=== PATIENT | female | born 1960 | race Caucasian/White ===

== ENCOUNTER → 2017-09-04 | Outpatient (CLI) | payer OTHER ==
--- NOTE | 2017-09-05 12:56 | BD ---
EXAMINATION TYPE: MG DEXA axial skeleton. DATE OF EXAM: 09/04/2017 COMPARISON: 2009 CLINICAL HISTORY: low back pain Height: 5'4 Weight: 137 FRAX RISK QUESTIONS: Alcohol (3 or more units per day): no Family History (Parent hip fracture): no Glucocorticoids (More than 3mos): no (Ex: prednisone, prednisolone, methylprednisolone, dexamethasone, and hydrocortisone). History of Fracture in Adulthood: yes Secondary Osteoporosis: 1. Type 1 Diabetes: no 2. Hyperthyroidism: no 3. Menopause before 45: no 4. Malnutrition: no 5. Chronic liver disease: no Rheumatoid Arthritis: no Current Tobacco Use: no RISK FACTORS HISTORY OF: Postmenopausal woman: MEDICATIONS: Additional Medications: sleep aid, anxiety, muscle relaxer anti inflammatory, migraine Additional History: EXAM MEASUREMENTS: Bone mineral densitometry was performed using the [employer] / [employer] System. Bone mineral density as measured about the Lumbar spine is: ----- L1-L4(G/cm2): 1.052 T Score Values are as follows: ----- L2: -0.9 ----- L3: -1.2 ----- L4: -1.4 ----- L1-L4: -1.1 Bone mineral density has: Decreased -10.2% since study of: 12/30/2009 Bone mineral density about the R hip (g/cm2): 0.675 Bone mineral density about the L hip (g/cm2): 0.690 T Score values are as follows: -----R Neck: -2.6 -----L Neck: -2.5 -----R Total: -2.4 -----L Total: -2.3 Bone mineral density has: Decreased -6.9% since study of: 12/30/2009 IMPRESSION: Osteoporosis (T Score less than -2.5) as noted by T Score values at the: Rt hip There is increased fracture risk and therapy is usually indicated based on age. Re-Screen 1-2 years. NOTE: T-SCORE=SD OF THE YOUNG ADULT MEAN.
== END | disposition home or self-care (01) ==
LOC: RADBDWWP 16:12
PROVIDERS: ATTEND Family Medicine
DX: M81.0 Age-related osteoporosis without current pathological fracture (principal); Z88.8 Allergy status to other drugs, medicaments and biological substances
CPT/HCPCS: 77080

== ENCOUNTER → 2017-11-05 | Outpatient (CLI) | payer OTHER ==
--- NOTE | 2017-11-06 07:30 | MM ---
Reason for exam: additional evaluation requested from prior study. Last mammogram was performed 9 years and 7 months ago. History: Family history of breast cancer in aunt. Physical Findings: Nurse did not find any significant physical abnormalities on exam. MG Diagnostic Mammo w CAD CHUY Bilateral CC and MLO view(s) were taken. Prior study comparison: April 07, 2008, bilateral digital screening mammogram. 2003, mammogram, performed at [facility]. The breast tissue is heterogeneously dense. This may lower the sensitivity of mammography. Finding: There are typically benign round calcifications in the middle position of the left breast. Asymmetric breast tissue in the right outer breast, stable. There is no discrete abnormality. These results were verbally communicated with the patient and result sheet given to the patient on 11/05/17. ASSESSMENT: Incomplete: need additional imaging evaluation, BI-RAD 0 RECOMMENDATION: Ultrasound of the left breast. (Pain focal).
--- NOTE | 2017-11-06 07:34 | USB ---
Reason for exam: additional evaluation requested from prior study. History: Family history of breast cancer in aunt. US Breast Limited LT Left breast ultrasound demonstrates no cystic or solid lesion seen. These results were verbally communicated with the patient and result sheet given to the patient on 11/05/17. ASSESSMENT: Negative, BI-RAD 1 RECOMMENDATION: Routine screening mammogram of both breasts in 1 year. (Manage on a clinical basis, left breast pain).
== END | disposition home or self-care (01) ==
LOC: RADMAMWWP 15:33
PROVIDERS: ATTEND Family Medicine
DX: N64.4 Mastodynia (principal); R92.8 Other abnormal and inconclusive findings on diagnostic imaging of breast; Z85.43 Personal history of malignant neoplasm of ovary
CPT/HCPCS: 76642; G0204

== ENCOUNTER → 2018-02-19 | Outpatient (CLI) | payer OTHER ==
--- NOTE | 2018-02-19 12:20 | CT ---
EXAMINATION TYPE: CT abdomen pelvis w con DATE OF EXAM: 02/19/2018 COMPARISON: NONE INDICATION: pain, bloating and wt gain DLP: 1196 mGycm, Automated exposure control for dose reduction was used. CONTRAST: 100 mL of Isovue 300. Study performed with Oral Contrast TECHNIQUE: Axial images were obtained from above the diaphragm to the pubic rami in the axial plane a t 5 mm thick sections. Reconstructed images are reviewed on the computer in the coronal plane. FINDINGS: Limited CT sections are obtained the lung bases. The lung bases are clear. CT ABDOMEN: Liver: Normal Spleen: Normal Pancreas: Normal Adrenal glands: The adrenal glands are normal. Gallbladder: Normal Kidneys: No masses are evident. No hydronephrosis is present. No cysts are present. Delayed images were obtained through the kidneys, which remain unremarkable. Aorta: Vascular calcification is within the aorta. Inferior vena cava: Normal. CT PELVIS: Loops of bowel within the abdomen and pelvis are normal. There are loops of bowel which are incom pletely distended or lack oral contrast limiting their evaluation. Diverticular changes are within th e sigmoid colon. Appendix: Normal as visualized. Urinary bladder: Normal. Genitourinary structures: Uterus is unremarkable. Adnexal regions are clear. No free fluid is within the pelvis. Osseous structures: No suspicious lytic or sclerotic lesions. There is a benign-appearing sclerotic a harika within the left iliac wing. IMPRESSIONS: 1. Unremarkable CT abdomen and pelvis. 2. Diverticulosis without acute diverticulitis.
== END | disposition home or self-care (01) ==
LOC: RADCTMAIN 06:59
PROVIDERS: ATTEND Family Medicine
DX: K57.90 Diverticulosis of intestine, part unspecified, without perforation or abscess without bleeding (principal); Z88.8 Allergy status to other drugs, medicaments and biological substances
CPT/HCPCS: 74177; Q9967

== ENCOUNTER → 2018-06-13 | Outpatient (CLI) | payer OTHER | END | disposition home or self-care (01) | LOC: RADMRIMAIN 07:12 | PROVIDERS: ATTEND Psychiatry & Neurology Neurology | DX: Z53.9 Procedure and treatment not carried out, unspecified reason (principal) ==

== ENCOUNTER → 2018-07-04 | Outpatient (CLI) | payer OTHER ==
--- NOTE | 2018-07-04 15:59 | MR ---
EXAMINATION TYPE: MR brain/cspine wo/w DATE OF EXAM: 07/04/2018 COMPARISON: None HISTORY: Migraines, Neck pain TECHNIQUE: Multiplanar, multisequence images of the brain and brainstem is performed without and with IV contras t, utilizing 7 mL intravenous Gadavist . FINDINGS: Brain: Diffusion weighted images demonstrate no evidence of a recent infarct or other diffusion abnor mality. There are approximately 6 T2/FLAIR hyperintense nonspecific white matter foci within the per iventricular and subcortical white matter of the frontal lobes. There is no extra-axial fluid collect ion. The ventricular system and cisternal spaces are normal in size and appearance. The brain volume is age appropriate. Midline structures demonstrate normal morphology. The craniocervical junction appears within normal limits. Post contrast images demonstrate no abnormal enhancement. The dural venous sinuses appear pa tent. The visualized sinuses are clear and the globes are intact. Cervical spine: The cervical spine vertebral bodies maintain normal vertebral body height. Multilevel disc desiccatio n is seen. Intervertebral disc space narrowing is present C6-C7. Bone marrow signal is unremarkable. Cervical spine signal is also again seen throughout. There is no abnormal postcontrast enhancement. C2-C3: There is a central disc herniation impressing upon the ventral subarachnoid space mildly witho ut significant spinal canal stenosis or neural foraminal narrowing. C3-C4: There is a central disc herniation with 3 mm cranial extrusion that is subligamentous narrowin g the ventral subarachnoid space creating mild spinal canal stenosis. There is no resultant neural fo raminal narrowing. C4-C5: There is a small right paracentral disc herniation impressing upon the ventral subarachnoid sp shelia and abutting the ventral cervical cord creating mild spinal canal stenosis. No resultant neural f oraminal narrowing. C5-C6: There is a small central disc osteophyte complex and very mild facet arthropathy with uncovert ebral hypertrophy however there is no neural foraminal narrowing. Mild spinal canal stenosis is seen at this level. C6-C7: There is a central disc herniation with uncovertebral hypertrophy and facet arthropathy creati ng mild bilateral neural foraminal narrowing and moderate spinal canal stenosis. C7-T1: No significant disc disease, spinal canal stenosis or neural foraminal narrowing. IMPRESSION: 1. Multilevel disc herniations seen at C2-C3, C3-C4, C4-C5, and C6-C7 creating mild spinal canal sten osis at C3-C4 and C4-C5 and moderate spinal canal stenosis at C6-C7. Degenerative disc disease also c reates mild spinal canal stenosis at C5-C6. 2. Mild burden nonspecific white matter change predominating within the frontal lobes which can be se en as sequela of migraines or in other etiologies such as demyelinating disease or vasculopathy. 3. No evidence of acute infarct, intracranial mass or abnormal enhancement of the brain or cervical s pine.
== END | disposition home or self-care (01) ==
LOC: RADMRIMAIN 11:46
PROVIDERS: ATTEND Psychiatry & Neurology Neurology
DX: M48.02 Spinal stenosis, cervical region (principal); M50.21 Other cervical disc displacement, high cervical region; M50.322 Other cervical disc degeneration at C5-C6 level; R90.89 Other abnormal findings on diagnostic imaging of central nervous system; G43.009 Migraine without aura, not intractable, without status migrainosus
CPT/HCPCS: 70553; 72156; A9581

== ENCOUNTER → 2018-09-12 | Outpatient (CLI) | payer OTHER ==
--- NOTE | 2018-09-12 21:16 | MR ---
Thoracic spine MRI with and without contrast HISTORY: Pain Multiplanar multisequence imaging through the thoracic spine There is a levoscoliosis present. Thoracic vertebral bodies show preserved height. There is multileve l spondylosis with endplate discogenic marrow signal change, loss of disc height and signal especiall y at T6-7, T7-8, T8-9 and T9-10. Nerve sheath diverticulum is present at T5-6 on the right. Thoracic cord signal is normal. There is no evident spinal stenosis or foraminal encroachment, no dis c herniation. Some facet arthropathy changes are present at the lower lumbar spine. No abnormal enhancement following contrast administration. IMPRESSION: Mild degenerative disc disease. Scoliosis. Additional findings above.
== END ==
LOC: RADMRIMAIN 18:36
PROVIDERS: ATTEND Psychiatry & Neurology Neurology
DX: M51.34 Other intervertebral disc degeneration, thoracic region (principal); M47.814 Spondylosis without myelopathy or radiculopathy, thoracic region; M46.94 Unspecified inflammatory spondylopathy, thoracic region
CPT/HCPCS: 72157; A9585

== ENCOUNTER → 2018-11-04 | Outpatient (CLI) | payer OTHER ==
--- NOTE | 2018-11-06 11:01 | MM ---
Reason for exam: screening (asymptomatic). Last mammogram was performed 1 year ago. History: Family history of breast cancer in aunt. Physical Findings: A clinical breast exam by your physician is recommended on an annual basis and results should be correlated with mammographic findings. MG Screening Mammo w CAD Bilateral CC and MLO view(s) were taken. Prior study comparison: November 05, 2017, bilateral MG diagnostic mammo w CAD CHUY. April 07, 2008, bilateral digital screening mammogram. The breast tissue is heterogeneously dense. This may lower the sensitivity of mammography. No significant changes when compared with prior studies. ASSESSMENT: Negative, BI-RAD 1 RECOMMENDATION: Routine screening mammogram of both breasts in 1 year.
== END | disposition home or self-care (01) ==
LOC: RADMAMWWP 15:41
PROVIDERS: ATTEND Family Medicine
DX: Z12.31 Encounter for screening mammogram for malignant neoplasm of breast (principal)
CPT/HCPCS: 77067

== ENCOUNTER 2018-12-11 09:21 | Emergency (ER) | payer OTHER ==
[2018-12-11 09:28] VITALS: BP 118/62; PULSE 90; RESP 18; TEMP 97.7
--- NOTE | 2018-12-11 09:45 | ED ---
ENT HPI - General Chief complaint: ENT Stated complaint: POSS COTTON IN RT EAR Time Seen by Provider: 12/11/18 09:29 Source: patient, RN notes reviewed, old records reviewed Mode of arrival: ambulatory Limitations: no limitations - History of Present Illness Initial comments: Patient is a 4-year-old female who presents emergency department today with chief complaint of chronic sinus issues for the past 2 months. She is using multiple [id number]-[id number] medications and remedies with little relief. Patient reports that she felt like her ear is regretful yesterday. She try to clean earwax. She apply drops and attempted to clean out her right ear with Q-tips. Patient presents today with complaints of, ball stuck within the right ear canal. Patient states she tried to get it out but was unsuccessful. Patient states that she feels pressure and pain within the right ear. Patient denies any fevers or chills. She denies any chest pain or shortness of breath. She reports that over the past 2 months she's had sinus congestion and sore throat and ear pain as well as a slight cough which the cough is recently resolved. - Related Data Home Medications Medication Instructions Recorded Confirmed Cyclobenzaprine [Flexeril] 10 mg PO TID 08/05/17 08/05/17 Previous Rx's Medication Instructions Recorded Azithromycin [Zithromax Z-pack] 250 mg PO DIRECTED #6 tab 12/11/18 Meclizine [Antivert] 25 mg PO TID #20 tab 12/11/18 Allergies Allergy/AdvReac Type Severity Reaction Status Date / Time prednisone Allergy Nausea & Verified 12/11/18 09:24 Vomiting Review of Systems ROS Statement: Those systems with pertinent positive or pertinent negative responses have been documented in the HPI. ROS Other: All systems not noted in ROS Statement are negative. Past Medical History Past Medical History: Cancer Additional Past Medical History / Comment(s): CLL History of Any Multi-Drug Resistant Organisms: None Reported Past Surgical History: No Surgical Hx Reported Additional Past Surgical History / Comment(s): eye surgery Past Psychological History: No Psychological Hx Reported Smoking Status: Never smoker Past Alcohol Use History: Rare Past Drug Use History: None Reported General Exam - General Exam Comments Initial Comments: This is a 58-year-old female. Alert and oriented. No significant distress. Limitations: no limitations General appearance: alert, in no apparent distress Head exam: Present: atraumatic, normocephalic, normal inspection Eye exam: Present: normal appearance, PERRL, EOMI. Absent: scleral icterus, conjunctival injection, periorbital swelling ENT exam: Present: normal exam, mucous membranes moist, other (Patient has a cottonball Q-tip stuck within the right ear canal. Patient's tenderness over the maxillary and ethmoid sinus). Absent: normal oropharynx (Erythematous oropharynx) Neck exam: Present: normal inspection. Absent: tenderness, meningismus, lymphadenopathy Respiratory exam: Present: normal lung sounds bilaterally. Absent: respiratory distress, wheezes, rales, rhonchi, stridor Cardiovascular Exam: Present: regular rate, normal rhythm, normal heart sounds. Absent: systolic murmur, diastolic murmur, rubs, gallop, clicks GI/Abdominal exam: Present: soft, normal bowel sounds. Absent: distended, tenderness, guarding, rebound, rigid Extremities exam: Present: normal inspection, full ROM, normal capillary refill. Absent: tenderness, pedal edema, joint swelling, calf tenderness Back exam: Present: normal inspection Neurological exam: Present: alert, oriented X3, CN II-XII intact Psychiatric exam: Present: normal affect, normal mood Skin exam: Present: warm, dry, intact, normal color. Absent: rash Course Vital Signs 12/11/18 09:24 Temperature 97.7 F Pulse Rate 90 Respiratory 18 Rate Blood Pressure 118/62 O2 Sat by Pulse 99 Oximetry Medical Decision Making - Medical Decision Making 58-year-old female presents today with chronic sinus issues in the past 2 months. She also complains of kind swab stuck within the right ear. I removed the cotton swab with alligator forceps. Patient tolerated the procedure well. He reports much relief after the procedure was completed. Patient does have some ethmoid Sinus tenderness. Due to multiple tyzq-psj-[id number] remedies salient will start the Patient on azithromycin at this time. Shows a has an erythematous right TM is clearly related to her recent consult. I discussed the Patient can follow-up with ENT and primary care provider. Discussed that no further, rales or sinus drainage technique should be completed without supervision physician. Patient agrees to treatment plan will comply. Disposition Clinical Impression: Sinusitis, Ear foreign body Disposition: HOME SELF-CARE Condition: Good Instructions (If sedation given, give patient instructions): Ear Foreign Body ( ED), Sinusitis (ED) Additional Instructions: Patient advised to not to any further Q-tips or drainage from the ears. The earwax has been removed. Take antibiotic as prescribed. Also taking meclizine to help with ear pain and sinus pressure. Patient should return to the emergency department if any alarming signs or symptoms occur. Prescriptions: Azithromycin [Zithromax Z-pack] 250 mg PO DIRECTED #6 tab Meclizine [Antivert] 25 mg PO TID #20 tab Is patient prescribed a controlled substance at d/c from ED?: No Referrals: Darryn Muir MD [Primary Care Provider] - 1-2 days Time of Disposition: 09:44
== END 2018-12-11 09:49 | disposition home or self-care (01) ==
LOC: EC 09:21
DX: T16.1XXA Foreign body in right ear, initial encounter (principal); J32.9 Chronic sinusitis, unspecified; Z88.8 Allergy status to other drugs, medicaments and biological substances; Z79.899 Other long term (current) drug therapy; Z85.6 Personal history of leukemia
CPT/HCPCS: 69200; 99283

== ENCOUNTER → 2018-12-16 | Outpatient (CLI) | payer OTHER ==
--- NOTE | 2018-12-16 10:44 | EST ---
EXERCISE STRESS DATE OF SERVICE: 12/16/2018 AGE: 58 SEX: Female HT: 64 WT: 135 PROTOCOL: Rex STAGE: I DURATION OF EXERCISE: 5 minutes 45 seconds HEART RATE REST: 86 BLOOD PRESSURE REST: 111/74 MAXIMUM HEART RATE ACHIEVED: 138 MAXIMUM BLOOD PRESSURE: 156/54 85% MPHR: 136 100% MPHR: 160 METS: 6.9 INDICATIONS: Chest pain. CLINICAL INFORMATION: Patient complains of chest pain. Baseline heart rate 86 beats per minute. Baseline blood pressure 111/74 mmHg. The patient's baseline 12-lead ECG shows normal sinus rhythm with J-point elevation in the lateral vein. The patient exercised on a Rex protocol for 5 minutes 45 seconds. She is not complaining of any chest pain, but she felt faint and she complained of headache. Normal blood pressure response. Peak heart rate 138 beats per minute. There was no definite ECG evidence for ischemia. No arrhythmias noted. IMPRESSION: Low average exercise capacity. Normal heart rate and blood pressure response to exercise. No ECG evidence for ischemia. No arrhythmias noted when the patient felt faint. Blood pressure and heart rate were normal. MMODL / IJN: [id number] /
== END | disposition home or self-care (01) ==
LOC: RADNMMAIN 08:31
PROVIDERS: ATTEND Family Medicine
DX: R07.9 Chest pain, unspecified (principal); Z88.8 Allergy status to other drugs, medicaments and biological substances
CPT/HCPCS: 93017

== ENCOUNTER 2019-01-26 12:02 | Emergency (ER) | payer OTHER ==
[2019-01-26] MEDS ORDERED: SODIUM CHLORIDE 0.9% 1,000 ML IV STA (12:31)
--- NOTE | 2019-01-26 12:48 | ED ---
Weakness HPI - General Chief complaint: Weakness Stated complaint: weakness/body aches Time Seen by Provider: 01/26/19 12:17 Source: patient, RN notes reviewed Mode of arrival: wheelchair Limitations: no limitations - History of Present Illness Initial comments: 58-year-old female presents emergency Department chief complaint of weakness. Patient states she has not felt well over the last few days. Patient states she's had fever cough congestion. Patient also feels that she's had some palpitations and tachycardia. Patient denies any dysuria, hematuria, nausea vomiting diarrhea constipation. Patient does have underlying CLL on no current treatment as she is asymptomatic. Patient has appointment on Sunday with Dr. Yadav her oncologist. Patient denies any neck pain, neck stiffness. She's had mild intermittent headaches. - Related Data Home Medications Medication Instructions Recorded Confirmed Cyclobenzaprine [Flexeril] 10 mg PO HS PRN 08/05/17 01/26/19 Acetaminophen-Codeine 300-30mg 1 - 2 tab PO DIRECTED PRN 01/26/19 01/26/19 [Tylenol w/codeine #3] Previous Rx's Medication Instructions Recorded Meclizine [Antivert] 25 mg PO TID #20 tab 12/11/18 Allergies Allergy/AdvReac Type Severity Reaction Status Date / Time prednisone Allergy Nausea & Verified 01/26/19 12:45 Vomiting Review of Systems ROS Statement: Those systems with pertinent positive or pertinent negative responses have been documented in the HPI. ROS Other: All systems not noted in ROS Statement are negative. Past Medical History Past Medical History: Cancer Additional Past Medical History / Comment(s): CLL History of Any Multi-Drug Resistant Organisms: None Reported Past Surgical History: No Surgical Hx Reported Additional Past Surgical History / Comment(s): eye surgery Past Psychological History: No Psychological Hx Reported Smoking Status: Never smoker Past Alcohol Use History: Rare Past Drug Use History: None Reported General Exam Limitations: no limitations General appearance: alert, in no apparent distress Head exam: Present: atraumatic, normocephalic, normal inspection Eye exam: Present: normal appearance, PERRL, EOMI. Absent: scleral icterus, conjunctival injection, periorbital swelling ENT exam: Present: normal exam, mucous membranes moist Neck exam: Present: normal inspection. Absent: tenderness, meningismus, lymphadenopathy Respiratory exam: Present: normal lung sounds bilaterally. Absent: respiratory distress, wheezes, rales, rhonchi, stridor Cardiovascular Exam: Present: normal rhythm, tachycardia, normal heart sounds. Absent: systolic murmur, diastolic murmur, rubs, gallop, clicks GI/Abdominal exam: Present: soft, normal bowel sounds. Absent: distended, tenderness, guarding, rebound, rigid Neurological exam: Present: alert, oriented X3, CN II-XII intact Skin exam: Present: warm, dry, intact, normal color. Absent: rash Course Vital Signs 01/26/19 01/26/19 12:03 13:03 Temperature 99 F Pulse Rate 112 H Respiratory 18 20 Rate Blood Pressure 103/54 O2 Sat by Pulse 97 Oximetry EKG Findings - EKG Comments: EKG Findings:: EKG performed at 12:57 normal sinus rhythm with a rate of 97 PA 160 QRS 74 QT/QTC 320/416 Medical Decision Making - Medical Decision Making 4-year-old female presented for does not feel well fever cough bodyaches palpitations. EKG is unremarkable. Lab work reveals mild leukocytosis no other signs of actual infection. Patient is influenza A positive consistent with her symptoms. Patient will be discharged return parameters were discussed. - Lab Data Result diagrams: 01/26/19 12:58 01/26/19 12:58 Lab Results 01/26/19 01/26/19 01/26/19 Range/Units 12:58 12:58 12:58 WBC 16.3 H (3.8-10.6) k/uL RBC 4.08 (3.80-5.40) m/uL Hgb 12.0 (11.4-16.0) gm/dL Hct 35.3 (34.0-46.0) % MCV 86.4 (80.0-100.0) fL MCH 29.3 (25.0-35.0) pg MCHC 33.9 (31.0-37.0) g/dL RDW 13.8 (11.5-15.5) % Plt Count 128 L (150-450) k/uL Neutrophils % (Manual) 35 % Band Neutrophils % 1 % Lymphocytes % (Manual) 64 % Monocytes % (Manual) 1 % Neutrophils # (Manual) 5.80 (1.3-7.7) k/uL Lymphocytes # (Manual) 10.43 H (1.0-4.8) k/uL Monocytes # (Manual) 0.16 (0-1.0) k/uL Nucleated RBCs 0 (0-0) /100 WBC Manual Slide Review Performed RBC Morphology Normal Sodium 137 (137-145) mmol/L Potassium 3.9 (3.5-5.1) mmol/L Chloride 105 (98-107) mmol/L Carbon Dioxide 22 (22-30) mmol/L Anion Gap 10 mmol/L BUN 14 (7-17) mg/dL Creatinine 0.54 (0.52-1.04) mg/dL Est GFR (CKD-EPI)AfAm >90 (>60 ml/min/1.73 sqM) Est GFR (CKD-EPI)NonAf >90 (>60 ml/min/1.73 sqM) Glucose 126 H (74-99) mg/dL Plasma Lactic Acid Senthil 0.6 L (0.7-2.0) mmol/L Calcium 8.8 (8.4-10.2) mg/dL Magnesium 1.9 (1.6-2.3) mg/dL Total Bilirubin 0.8 (0.2-1.3) mg/dL AST 21 (14-36) U/L ALT 26 (9-52) U/L Alkaline Phosphatase 67 (38-126) U/L Troponin I (0.000-0.034) ng/mL Total Protein 6.6 (6.3-8.2) g/dL Albumin 3.9 (3.5-5.0) g/dL Urine Color Urine Appearance (Clear) Urine pH (5.0-8.0) Ur Specific [place] (1.001-1.035) Urine Protein (Negative) Urine Glucose (UA) (Negative) Urine Ketones (Negative) Urine Blood (Negative) Urine Nitrite (Negative) Urine Bilirubin (Negative) Urine Urobilinogen (<2.0) mg/dL Ur Leukocyte Esterase (Negative) Urine RBC (0-5) /hpf Urine WBC (0-5) /hpf Ur Squamous Epith Cells (0-4) /hpf Urine Mucus (None) /hpf Influenza Type A RNA (Not Detectd) Influenza Type B (PCR) (Not Detectd) 01/26/19 01/26/19 01/26/19 Range/Units 12:58 13:00 14:51 WBC (3.8-10.6) k/uL RBC (3.80-5.40) m/uL Hgb (11.4-16.0) gm/dL Hct (34.0-46.0) % MCV (80.0-100.0) fL MCH (25.0-35.0) pg MCHC (31.0-37.0) g/dL RDW (11.5-15.5) % Plt Count (150-450) k/uL Neutrophils % (Manual) % Band Neutrophils % % Lymphocytes % (Manual) % Monocytes % (Manual) % Neutrophils # (Manual) (1.3-7.7) k/uL Lymphocytes # (Manual) (1.0-4.8) k/uL Monocytes # (Manual) (0-1.0) k/uL Nucleated RBCs (0-0) /100 WBC Manual Slide Review RBC Morphology Sodium (137-145) mmol/L Potassium (3.5-5.1) mmol/L Chloride (98-107) mmol/L Carbon Dioxide (22-30) mmol/L Anion Gap mmol/L BUN (7-17) mg/dL Creatinine (0.52-1.04) mg/dL Est GFR (CKD-EPI)AfAm (>60 ml/min/1.73 sqM) Est GFR (CKD-EPI)NonAf (>60 ml/min/1.73 sqM) Glucose (74-99) mg/dL Plasma Lactic Acid Senthil (0.7-2.0) mmol/L Calcium (8.4-10.2) mg/dL Magnesium (1.6-2.3) mg/dL Total Bilirubin (0.2-1.3) mg/dL AST (14-36) U/L ALT (9-52) U/L Alkaline Phosphatase (38-126) U/L Troponin I <0.012 (0.000-0.034) ng/mL Total Protein (6.3-8.2) g/dL Albumin (3.5-5.0) g/dL Urine Color Yellow Urine Appearance Clear (Clear) Urine pH 5.5 (5.0-8.0) Ur Specific [place] 1.007 (1.001-1.035) Urine Protein Trace H (Negative) Urine Glucose (UA) Negative (Negative) Urine Ketones 1+ H (Negative) Urine Blood Small H (Negative) Urine Nitrite Negative (Negative) Urine Bilirubin Negative (Negative) Urine Urobilinogen <2.0 (<2.0) mg/dL Ur Leukocyte Esterase Negative (Negative) Urine RBC 4 (0-5) /hpf Urine WBC 1 (0-5) /hpf Ur Squamous Epith Cells <1 (0-4) /hpf Urine Mucus Many H (None) /hpf Influenza Type A RNA Detected H (Not Detectd) Influenza Type B (PCR) Not Detected (Not Detectd) Disposition Clinical Impression: Influenza Disposition: HOME SELF-CARE Condition: Stable Instructions (If sedation given, give patient instructions): Influenza (ED) Additional Instructions: Please return to the Emergency Department if symptoms worsen or any other concerns. Is patient prescribed a controlled substance at d/c from ED?: No Referrals: Darryn Muir MD [Primary Care Provider] - 1-2 days Time of Disposition: 15:28
[2019-01-26 13:23] LABS: HCT 35.3 % (34.0-46.0); MCH 29.3 pg (25.0-35.0); MCHC 33.9 g/dL (31.0-37.0); MCV 86.4 fL (80.0-100.0); Mean Platelet Volume 6.6; Platelet Count 128 k/uL (150-450); RBC 4.08 m/uL (3.80-5.40); RDW 13.8 % (11.5-15.5); WBC 16.3 k/uL (3.8-10.6)
[2019-01-26 13:31] LABS: ALT 26 U/L (9-52); AST 21 U/L (14-36); Albumin 3.9 g/dL (3.5-5.0); Alkaline Phosphatase 67 U/L (38-126); Anion Gap 10 mmol/L; Blood Urea Nitrogen 14 mg/dL (7-17); Calcium 8.8 mg/dL (8.4-10.2); Carbon Dioxide 22 mmol/L (22-30); Chloride 105 mmol/L (98-107); Glucose 126 mg/dL (74-99); Magnesium 1.9 mg/dL (1.6-2.3); Potassium 3.9 mmol/L (3.5-5.1); Sodium 137 mmol/L (137-145); Total Bilirubin 0.8 mg/dL (0.2-1.3); Total Protein 6.6 g/dL (6.3-8.2)
[2019-01-26 13:48] LABS: Band Neutrophils % 1 %; Lymphocytes # (M) 10.43 k/uL (1.0-4.8); Monocytes # (M) 0.16 k/uL (0-1.0); Neutrophils % (M) 35 %; Nucleated Red Blood Cells 0 /100 WBC (0-0); Total Cells Counted 200
--- NOTE | 2019-01-26 13:51 | XR ---
EXAMINATION TYPE: XR chest 2V DATE OF EXAM: 01/26/2019 COMPARISON: NONE HISTORY: Weakness and bodyaches TECHNIQUE: Frontal and lateral views of the chest are obtained. FINDINGS: There is no focal air space opacity, pleural effusion, or pneumothorax seen. The cardiac silhouette size is within normal limits. The osseous structures are intact. IMPRESSION: No acute cardiopulmonary process.
[2019-01-26 15:07] LABS: Appearance,Urine Clear (Clear); Bilirubin,Urine Negative (Negative); Blood,Urine Small (Negative); Color,Urine Yellow; Glucose,Urine (UA) Negative (Negative); Ketones,Urine 1+ (Negative); Leukocyte Esterase,Urine Negative (Negative); Mucus,Urine Many /hpf; Nitrite,Urine Negative (Negative); PH, Urine 5.5 (5.0-8.0); Protein,Urine Trace (Negative); RBC,Urine 4 /hpf (0-5); Specific Gravity,Urine 1.007 (1.001-1.035); Squamous Epithelial Cell,Urine <1 /hpf (0-4); Urobilinogen,Urine <2.0 mg/dL (<2.0); WBC,Urine 1 /hpf (0-5)
[2019-01-26 15:47] VITALS: BP 117/52; PULSE 91; RESP 18; TEMP 98.9
== END 2019-01-26 15:56 | disposition home or self-care (01) ==
LOC: EC 12:02
DX: J10.1 Influenza due to other identified influenza virus with other respiratory manifestations (principal); D72.829 Elevated white blood cell count, unspecified; R00.2 Palpitations; Z85.6 Personal history of leukemia; Z88.8 Allergy status to other drugs, medicaments and biological substances
CPT/HCPCS: 36415; 71046; 80053; 81001; 83605; 83735; 84484; 85025; 87040; 87502; 93005; 96360; 99285

== ENCOUNTER → 2019-04-07 | Outpatient (CLI) | payer OTHER ==
[2019-04-07 12:34] LABS: HCT 40.9 % (34.0-46.0); HGB 13.1 gm/dL (11.4-16.0); MCHC 32.1 g/dL (31.0-37.0); MCV 87.2 fL (80.0-100.0); Mean Platelet Volume 7.1; Platelet Count 179 k/uL (150-450); RBC 4.69 m/uL (3.80-5.40); RDW 14.9 % (11.5-15.5); WBC 22.1 k/uL (3.8-10.6)
[2019-04-07 13:42] LABS: Band Neutrophils % 1 %; Lymphocytes # (M) 18.79 k/uL (1.0-4.8); Neutrophils % (M) 14 %; Nucleated Red Blood Cells 0 /100 WBC (0-0); Total Cells Counted 100
[2019-04-07 17:11] LABS: Hemoglobin A1C 5.6 % (4.0-6.0)
[2019-04-07 18:46] LABS: Albumin 4.8 g/dL (3.80-4.90); Albumin/Globulin Ratio 2.29 (1.60-3.17); Anion Gap 8.4 mmol/L (4.00-12.00); Calcium 10.2 mg/dL (8.7-10.3); Carbon Dioxide 24.6 mmol/L (21.6-31.8); Globulin 2.1 g/dL (1.6-3.3); Potassium 4.5 mmol/L (3.5-5.5); Total Bilirubin 0.7 mg/dL (0.3-1.2); Total Protein 6.9 g/dL (6.2-8.2)
[2019-04-08 07:33] LABS: APTT 35 Sec(s) (<43); Dilute Russell Viper Venom 42 Sec(s) (<44)
== END | disposition home or self-care (01) ==
LOC: LABWHC1 11:39
PROVIDERS: ATTEND Family Medicine
DX: B89 Unspecified parasitic disease (principal); I10 Essential (primary) hypertension; Z79.899 Other long term (current) drug therapy
CPT/HCPCS: 36415; 80053; 80061; 83036; 84443; 85025; 85613; 85730; 86038; 86665

== ENCOUNTER 2019-09-27 06:40 | Emergency (ER) | payer OTHER ==
[2019-09-27 06:48] VITALS: BP 127/69; PULSE 89; RESP 18; TEMP 97.6
--- NOTE | 2019-09-27 07:10 | ED ---
ENT HPI - General Chief complaint: ENT Stated complaint: URI Time Seen by Provider: 09/27/19 06:49 Source: patient, RN notes reviewed Mode of arrival: ambulatory Limitations: no limitations - History of Present Illness Initial comments: This a 58-year-old female presents emergency Department chief complaint of on and off cold-like symptoms over the last 2 months. Patient states that she most recently finish a course of Augmentin. She states prior to that she had another course of Augmentin and amoxicillin. Patient states that she's had no reported fevers. Patient states she she's had persistent continuous nasal congestion. Patient states she does have a productive cough primarily on morning. Patient had recent lab work with PCP and had multiple bilateral test rain which were negative. Patient does have CLL and sees Dr. Guajardo on a regular basis. Patient is on no course of treatment they're just monitoring her symptoms. - Related Data Home Medications Medication Instructions Recorded Confirmed Cyclobenzaprine [Flexeril] 10 mg PO HS PRN 08/05/17 02/09/19 Meclizine [Antivert] 25 mg PO HS 02/09/19 02/09/19 Pseudoephedrine HCl [Sudafed] 30 mg PO DAILY 02/09/19 02/09/19 Previous Rx's Medication Instructions Recorded Doxycycline Hyclate [Vibramycin] 100 mg PO BID 7 Days #14 cap 02/10/19 Levofloxacin [Levaquin] 500 mg PO DAILY #10 tab 09/27/19 Allergies Allergy/AdvReac Type Severity Reaction Status Date / Time prednisone Allergy Nausea & Verified 09/27/19 06:48 Vomiting Review of Systems ROS Statement: Those systems with pertinent positive or pertinent negative responses have been documented in the HPI. ROS Other: All systems not noted in ROS Statement are negative. Past Medical History Past Medical History: Cancer Additional Past Medical History / Comment(s): CLL History of Any Multi-Drug Resistant Organisms: None Reported Past Surgical History: No Surgical Hx Reported Additional Past Surgical History / Comment(s): eye surgery Past Psychological History: No Psychological Hx Reported Smoking Status: Never smoker Past Alcohol Use History: Rare Past Drug Use History: None Reported General Exam Limitations: no limitations General appearance: alert, in no apparent distress Head exam: Present: atraumatic, normocephalic, normal inspection Eye exam: Present: normal appearance, PERRL, EOMI. Absent: scleral icterus, conjunctival injection, periorbital swelling ENT exam: Present: mucous membranes moist, TM's normal bilaterally. Absent: normal exam, normal oropharynx (Postnasal drainage) Neck exam: Present: normal inspection, full ROM. Absent: tenderness, meningismus, lymphadenopathy Respiratory exam: Present: normal lung sounds bilaterally. Absent: respiratory distress, wheezes, rales, rhonchi, stridor Cardiovascular Exam: Present: regular rate, normal rhythm, normal heart sounds. Absent: systolic murmur, diastolic murmur, rubs, gallop, clicks GI/Abdominal exam: Present: soft, normal bowel sounds. Absent: distended, tenderness, guarding, rebound, rigid Neurological exam: Present: alert, oriented X3 Skin exam: Present: warm, dry, intact, normal color. Absent: rash Course Vital Signs 09/27/19 06:46 Temperature 97.6 F Pulse Rate 89 Respiratory 18 Rate Blood Pressure 127/69 O2 Sat by Pulse 100 Oximetry Medical Decision Making - Medical Decision Making X-ray of the chest is unremarkable at this time. There is no acute changes. Patient has had persistent sinus issues over the last couple months. Patient is advised that she is to follow-up with ENT on-call Dr. Stewart. Patient agrees this plan. Patient was discharged in stable condition return parameters were discussed. Disposition Clinical Impression: Sinusitis Disposition: HOME SELF-CARE Condition: Stable Instructions (If sedation given, give patient instructions): Sinusitis (ED) Additional Instructions: Please return to the Emergency Department if symptoms worsen or any other concerns. Prescriptions: Levofloxacin [Levaquin] 500 mg PO DAILY #10 tab Is patient prescribed a controlled substance at d/c from ED?: No Referrals: Ge Fan MD [Primary Care Provider] - 1-2 days Time of Disposition: 07:35
--- NOTE | 2019-09-27 07:14 | XR ---
EXAMINATION TYPE: XR chest 2V DATE OF EXAM: 09/27/2019 HISTORY: cough. REFERENCE: Previous study dated 02/09/2019. FINDINGS: Lungs remain clear. Pleural spaces are clear. The heart is not enlarged. IMPRESSION: NO ACTIVE INTRATHORACIC DISEASE.
[2019-09-27] MEDS ORDERED: ACET/COD 300 MG/30 MG STARTER PACK 6 TAB BTL PO STA (07:38)
== END 2019-09-27 07:49 | disposition home or self-care (01) ==
LOC: EC 06:40
DX: J32.9 Chronic sinusitis, unspecified (principal); C91.10 Chronic lymphocytic leukemia of B-cell type not having achieved remission; Z88.8 Allergy status to other drugs, medicaments and biological substances; Z79.899 Other long term (current) drug therapy
CPT/HCPCS: 71046; 99283

== ENCOUNTER → 2019-11-06 | Outpatient (CLI) | payer OTHER | END | disposition home or self-care (01) | LOC: LABWHC1 14:28 | PROVIDERS: ATTEND Nurse Practitioner Adult Health | DX: R53.83 Other fatigue (principal) | CPT/HCPCS: 36415; 82306; 82607; 84443 ==

== ENCOUNTER → 2019-11-11 | Outpatient (CLI) | payer OTHER ==
--- NOTE | 2019-11-11 13:51 | XR ---
Left foot HISTORY: Trauma and pain 3 views of left foot Bone mineralization is reduced. Joint spaces and alignment are maintained. Soft tissue swelling suspe cted metatarsophalangeal joint of the first digit. IMPRESSION: No fracture or dislocation.
== END | disposition home or self-care (01) ==
LOC: RADXRMAIN 11:36
PROVIDERS: ATTEND Internal Medicine
DX: M79.672 Pain in left foot (principal)

== ENCOUNTER 2020-09-10 20:34 | Inpatient (IN) | payer MEDICAID, OTHER ==
[2020-09-10 21:37] LABS: Appearance,Urine Clear (Clear); Bilirubin,Urine Negative (Negative); Blood,Urine Trace (Negative); Budding Yeast,Urine Occasional /hpf; Color,Urine Yellow; Glucose,Urine (UA) Negative (Negative); Hyaline Casts,Urine 1 /lpf (0-2); Ketones,Urine Negative (Negative); Leukocyte Esterase,Urine Small (Negative); Mucus,Urine Few /hpf; Nitrite,Urine Negative (Negative); Protein,Urine Trace (Negative); RBC,Urine 14 /hpf (0-5); Specific Gravity,Urine 1.021 (1.001-1.035); Squamous Epithelial Cell,Urine 1 /hpf (0-4); Urobilinogen,Urine <2.0 mg/dL (<2.0); WBC,Urine 5 /hpf (0-5)
[2020-09-10 21:46] LABS: Amphetamine Screen,Urine Not Detected (NotDetected); Barbiturate Screen,Urine Not Detected (NotDetected); Benzodiazepines Screen,Urine Not Detected (NotDetected); Cocaine Screen,Urine Not Detected (NotDetected); Methadone Screen, Urine Not Detected (NotDetected); Opiate Screen,Urine Not Detected (NotDetected); Oxycodone Screen, Urine Not Detected (NotDetected); Phencyclidine Screen,Urine Not Detected (NotDetected); Tricyclic Antidepressant,Urine Not Detected (NotDetected); Urn Cannabinoid Scrn Not Detected (NotDetected)
[2020-09-10 22:13] LABS: HCT 39.5 % (34.0-46.0); HGB 12.9 gm/dL (11.4-16.0); MCH 29.5 pg (25.0-35.0); MCHC 32.7 g/dL (31.0-37.0); MCV 90.2 fL (80.0-100.0); Platelet Count 172 k/uL (150-450); RBC 4.38 m/uL (3.80-5.40); RDW 13.6 % (11.5-15.5); WBC 33.1 k/uL (3.8-10.6)
[2020-09-10 22:20] LABS: Lactic Acid, Venous 1.4 mmol/L (0.7-2.0)
[2020-09-10 22:21] LABS: ALT 14 U/L (4-34); AST 23 U/L (14-36); African American GFR (CKD) >90 (>60 ml/min/1.73 sqM); Albumin 4.3 g/dL (3.5-5.0); Alkaline Phosphatase 84 U/L (38-126); Anion Gap 6 mmol/L; Blood Urea Nitrogen 18 mg/dL (7-17); Calcium 9.3 mg/dL (8.4-10.2); Carbon Dioxide 22 mmol/L (22-30); Chloride 110 mmol/L (98-107); Glucose 123 mg/dL (74-99); Non-African American GFR(CKD) 88 (>60 ml/min/1.73 sqM); Potassium 4.4 mmol/L (3.5-5.1); Sodium 138 mmol/L (137-145); Total Bilirubin 0.5 mg/dL (0.2-1.3)
[2020-09-10 22:22] LABS: Partial Thromboplastin Time 22.5 sec (22.0-30.0); Prothrombin Time 9.9 sec (9.0-12.0)
[2020-09-10 22:39] LABS: Lymphocytes # (M) 30.45 k/uL (1.0-4.8); Monocytes # (M) 0.33 k/uL (0-1.0); Neutrophils # (M) 2.32 k/uL (1.3-7.7); Neutrophils % (M) 7 %; Nucleated Red Blood Cells 0 /100 WBC (0-0); Total Cells Counted 100
--- NOTE | 2020-09-10 23:02 | ED ---
General Adult HPI - General Source: patient, police Mode of arrival: ambulatory <Michelle Cedeno - Last Filed: 09/10/20 23:00> <Flakito Wood - Last Filed: 09/11/20 03:27> - General Chief complaint: Psychiatric Symptoms Stated complaint: pick up man order/mental health status Time Seen by Provider: 09/10/20 20:59 - History of Present Illness Initial comments: 59-year-old female presenting today for chief complaint of brought in by police for hallucinations. Patient states people or squatting intercostal she states her smoking and disruptive she states she called mobile crisis unit as panicked and was told to be brought to the emergency department. Patient states that she does not know if she has any psychiatric history she states she does have some depression she states she does have leukemia. Patient denies any headaches nausea vomiting visual changes chest pain shortness of breath or additional complaints she states she really doesn't want to be here. Denies suicidal or homicidal ideations. Patient denies additional complaints. (Michelle Cedeno) - Related Data Home Medications Medication Instructions Recorded Confirmed Cyclobenzaprine [Flexeril] 10 mg PO HS PRN 08/05/17 09/10/20 Cholecalciferol [Vitamin D3 (25 2,000 unit PO DAILY 09/10/20 09/10/20 Mcg = 1000 Iu)] Flaxseed Oil [[place]-3 Flaxseed Oil] 1,000 mg PO DAILY 09/10/20 09/10/20 Fluticasone Nasal [place] [Flonase 2 spr EA NOSTRIL DAILY PRN 09/10/20 09/10/20 Nasal [place]] Magnesium Oxide [Magox 400] 400 mg PO DAILY 09/10/20 09/10/20 Meclizine HCl 12.5 mg PO HS PRN 09/10/20 09/10/20 Naproxen Sodium 440 mg PO BID PRN 09/10/20 09/10/20 Phytonadione [Vitamin K] 5 mg PO DAILY 09/10/20 09/10/20 Potassium Gluconate 99 mg PO DAILY 09/10/20 09/10/20 Vitamin E 400 unit PO DAILY 09/10/20 09/10/20 Zinc 50 mg PO DAILY 09/10/20 09/10/20 Allergies Allergy/AdvReac Type Severity Reaction Status Date / Time prednisone Allergy Nausea & Verified 09/10/20 21:49 Vomiting Review of Systems ROS Other: All systems not noted in ROS Statement are negative. <Michelle Cedeno - Last Filed: 09/10/20 23:00> ROS Other: All systems not noted in ROS Statement are negative. <Flakito Wood - Last Filed: 09/11/20 03:27> ROS Statement: Those systems with pertinent positive or pertinent negative responses have been documented in the HPI. Past Medical History Past Medical History: Cancer Additional Past Medical History / Comment(s): CLL History of Any Multi-Drug Resistant Organisms: None Reported Past Surgical History: No Surgical Hx Reported Additional Past Surgical History / Comment(s): eye surgery Past Psychological History: No Psychological Hx Reported Smoking Status: Former smoker Past Alcohol Use History: Rare Past Drug Use History: None Reported <Michelle Cedeno - Last Filed: 09/10/20 23:00> General Exam General appearance: alert, in no apparent distress Head exam: Present: atraumatic, normocephalic, normal inspection Eye exam: Present: normal appearance, PERRL, EOMI. Absent: scleral icterus, conjunctival injection, periorbital swelling ENT exam: Present: normal exam, mucous membranes moist Neck exam: Present: normal inspection. Absent: tenderness, meningismus, lymphadenopathy Respiratory exam: Present: normal lung sounds bilaterally. Absent: respiratory distress, wheezes, rales, rhonchi, stridor Cardiovascular Exam: Present: regular rate, normal rhythm, normal heart sounds. Absent: systolic murmur, diastolic murmur, rubs, gallop, clicks GI/Abdominal exam: Present: soft, normal bowel sounds. Absent: distended, tenderness, guarding, rebound, rigid Extremities exam: Present: normal inspection, full ROM, normal capillary refill. Absent: tenderness, pedal edema, joint swelling, calf tenderness Back exam: Present: normal inspection Neurological exam: Present: alert, oriented X3, CN II-XII intact Psychiatric exam: Present: normal affect, normal mood Skin exam: Present: warm, dry, intact, normal color. Absent: rash <Flakito Wood - Last Filed: 09/11/20 03:27> Course <Michelle Cedeno - Last Filed: 09/10/20 23:00> <Flakito Wood - Last Filed: 09/11/20 03:27> Vital Signs 09/10/20 20:45 Temperature 98.0 F Pulse Rate 88 Respiratory 18 Rate Blood Pressure 137/66 O2 Sat by Pulse 97 Oximetry - Reevaluation(s) Reevaluation #1: SIgned out to Dr. Wood 09/10/20 23:00 (Michelle Cedeno) Reevaluation #2: 09/10/20 23:29 Medical record is reviewed 09/10/20 23:29 Medical clear for psychiatric evaluation 09/11/20 03:26 patient was seen and evaluated psychiatry here in the ER (Flakito Wood) Reevaluation #3: 09/11/20 03:27 patient seen by me for clinical certification (Flakito Wood) Medical Decision Making - Lab Data Result diagrams: 09/10/20 21:54 09/10/20 21:54 <Michelle Cedeno - Last Filed: 09/10/20 23:00> - Lab Data Result diagrams: 09/10/20 21:54 09/10/20 21:54 - Radiology Data Radiology results: report reviewed (CT brain is negative for acute disease), image reviewed <Flakito Wood - Last Filed: 09/11/20 03:27> - Medical Decision Making 59 female seen in [facility] psychiatry, patient replacement inpatient psychiatric treatment and evaluation (Flakito Wood) - Lab Data Lab Results 09/10/20 09/10/20 09/10/20 Range/Units 21:17 21:54 21:54 WBC 33.1 H (3.8-10.6) k/uL RBC 4.38 (3.80-5.40) m/uL Hgb 12.9 (11.4-16.0) gm/dL Hct 39.5 (34.0-46.0) % MCV 90.2 (80.0-100.0) fL MCH 29.5 (25.0-35.0) pg MCHC 32.7 (31.0-37.0) g/dL RDW 13.6 (11.5-15.5) % Plt Count 172 (150-450) k/uL Neutrophils % (Manual) 7 % Lymphocytes % (Manual) 92 % Monocytes % (Manual) 1 % Neutrophils # (Manual) 2.32 (1.3-7.7) k/uL Lymphocytes # (Manual) 30.45 H (1.0-4.8) k/uL Monocytes # (Manual) 0.33 (0-1.0) k/uL Nucleated RBCs 0 (0-0) /100 WBC Manual Slide Review Performed PT 9.9 (9.0-12.0) sec INR 1.0 (<1.2) APTT 22.5 (22.0-30.0) sec Sodium (137-145) mmol/L Potassium (3.5-5.1) mmol/L Chloride (98-107) mmol/L Carbon Dioxide (22-30) mmol/L Anion Gap mmol/L BUN (7-17) mg/dL Creatinine (0.52-1.04) mg/dL Est GFR (CKD-EPI)AfAm (>60 ml/min/1.73 sqM) Est GFR (CKD-EPI)NonAf (>60 ml/min/1.73 sqM) Glucose (74-99) mg/dL Plasma Lactic Acid Senthil (0.7-2.0) mmol/L Calcium (8.4-10.2) mg/dL Total Bilirubin (0.2-1.3) mg/dL AST (14-36) U/L ALT (4-34) U/L Alkaline Phosphatase (38-126) U/L Ammonia (<30) umol/L Total Protein (6.3-8.2) g/dL Albumin (3.5-5.0) g/dL Urine Color Yellow Urine Appearance Clear (Clear) Urine pH 8.0 (5.0-8.0) Ur Specific Cruger 1.021 (1.001-1.035) Urine Protein Trace H (Negative) Urine Glucose (UA) Negative (Negative) Urine Ketones Negative (Negative) Urine Blood Trace H (Negative) Urine Nitrite Negative (Negative) Urine Bilirubin Negative (Negative) Urine Urobilinogen <2.0 (<2.0) mg/dL Ur Leukocyte Esterase Small H (Negative) Urine RBC 14 H (0-5) /hpf Urine WBC 5 (0-5) /hpf Ur Squamous Epith Cells 1 (0-4) /hpf Hyaline Casts 1 (0-2) /lpf Urine Mucus Few H (None) /hpf Urine Yeast (Budding) Occasional H (None) /hpf Urine Opiates Screen Not Detected (NotDetected) Ur Oxycodone Screen Not Detected (NotDetected) Urine Methadone Screen Not Detected (NotDetected) Ur Propoxyphene Screen Not Detected (NotDetected) Ur Barbiturates Screen Not Detected (NotDetected) U Tricyclic Antidepress Not Detected (NotDetected) Ur Phencyclidine Scrn Not Detected (NotDetected) Ur Amphetamines Screen Not Detected (NotDetected) U Methamphetamines Scrn Not Detected (NotDetected) U Benzodiazepines Scrn Not Detected (NotDetected) Urine Cocaine Screen Not Detected (NotDetected) U Marijuana (THC) Screen Not Detected (NotDetected) 09/10/20 09/10/20 Range/Units 21:54 21:54 WBC (3.8-10.6) k/uL RBC (3.80-5.40) m/uL Hgb (11.4-16.0) gm/dL Hct (34.0-46.0) % MCV (80.0-100.0) fL MCH (25.0-35.0) pg MCHC (31.0-37.0) g/dL RDW (11.5-15.5) % Plt Count (150-450) k/uL Neutrophils % (Manual) % Lymphocytes % (Manual) % Monocytes % (Manual) % Neutrophils # (Manual) (1.3-7.7) k/uL Lymphocytes # (Manual) (1.0-4.8) k/uL Monocytes # (Manual) (0-1.0) k/uL Nucleated RBCs (0-0) /100 WBC Manual Slide Review PT (9.0-12.0) sec INR (<1.2) APTT (22.0-30.0) sec Sodium 138 (137-145) mmol/L Potassium 4.4 (3.5-5.1) mmol/L Chloride 110 H (98-107) mmol/L Carbon Dioxide 22 (22-30) mmol/L Anion Gap 6 mmol/L BUN 18 H (7-17) mg/dL Creatinine 0.74 (0.52-1.04) mg/dL Est GFR (CKD-EPI)AfAm >90 (>60 ml/min/1.73 sqM) Est GFR (CKD-EPI)NonAf 88 (>60 ml/min/1.73 sqM) Glucose 123 H (74-99) mg/dL Plasma Lactic Acid Senthil 1.4 (0.7-2.0) mmol/L Calcium 9.3 (8.4-10.2) mg/dL Total Bilirubin 0.5 (0.2-1.3) mg/dL AST 23 (14-36) U/L ALT 14 (4-34) U/L Alkaline Phosphatase 84 (38-126) U/L Ammonia 15 (<30) umol/L Total Protein 7.0 (6.3-8.2) g/dL Albumin 4.3 (3.5-5.0) g/dL Urine Color Urine Appearance (Clear) Urine pH (5.0-8.0) Ur Specific Cruger (1.001-1.035) Urine Protein (Negative) Urine Glucose (UA) (Negative) Urine Ketones (Negative) Urine Blood (Negative) Urine Nitrite (Negative) Urine Bilirubin (Negative) Urine Urobilinogen (<2.0) mg/dL Ur Leukocyte Esterase (Negative) Urine RBC (0-5) /hpf Urine WBC (0-5) /hpf Ur Squamous Epith Cells (0-4) /hpf Hyaline Casts (0-2) /lpf Urine Mucus (None) /hpf Urine Yeast (Budding) (None) /hpf Urine Opiates Screen (NotDetected) Ur Oxycodone Screen (NotDetected) Urine Methadone Screen (NotDetected) Ur Propoxyphene Screen (NotDetected) Ur Barbiturates Screen (NotDetected) U Tricyclic Antidepress (NotDetected) Ur Phencyclidine Scrn (NotDetected) Ur Amphetamines Screen (NotDetected) U Methamphetamines Scrn (NotDetected) U Benzodiazepines Scrn (NotDetected) Urine Cocaine Screen (NotDetected) U Marijuana (THC) Screen (NotDetected) Disposition <Michelle Cedeno L - Last Filed: 09/10/20 23:00> Is patient prescribed a controlled substance at d/c from ED?: No <Flakito Wood - Last Filed: 09/11/20 03:27> Clinical Impression: Psychosis, Acute psychosis Disposition: TRANSFER TO PSYCH HOSP/UNIT Condition: Fair
--- NOTE | 2020-09-10 23:21 | CT ---
EXAMINATION TYPE: CT brain wo con DATE OF EXAM: 09/10/2020 COMPARISON: None HISTORY: AMS CT DLP: 1055.4 mGycm Automated exposure control for dose reduction was used. Ventricles have normal size. There is no mass effect nor midline shift. There is no sign of intracran ial hemorrhage. The calvarium is intact. Impression head CT scan appears normal for age.
[2020-09-11] MEDS ORDERED: MAG HYDROX/AL HYDROX/SIMETH 30 ML CUP PO PRN (03:49)
[2020-09-11] MEDS ORDERED: MAGNESIUM HYDROXIDE 2,400 MG/10 ML CUP PO PRN (03:49)
[2020-09-11] MEDS ORDERED: LORazepam 1 MG TAB PO PRN (03:49)
[2020-09-11] MEDS ORDERED: ZIPRASIDONE 20 MG VIAL IM PRN (03:49)
[2020-09-11] MEDS ORDERED: ACETAMINOPHEN TAB 325 MG TAB PO PRN (03:49)
[2020-09-11] MEDS ORDERED: LORazepam 2 MG/ML INJ IM PRN ×2 (03:51→03:57)
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
[2020-09-11 12:03] LABS: Hemoglobin A1C 5.6 % (4.0-6.0)
[2020-09-11] MEDS: IBUPROFEN 600 MG TAB PO PRN (16:48)
[2020-09-11] MEDS: MELATONIN 3 MG TABLET PO SCH (21:46)
[2020-09-11] MEDS: PALIPERIDONE 3 MG TAB.ER.24 PO SCH (21:46)
--- NOTE | 2020-09-11 22:48 | P.CONS ---
History of Present Illness - Reason for Consult Consult date: 09/11/20 - History of Present Illness Patient is a 59-year-old female with a PMH of CLL who was brought into the emergency room by police for hallucinations and delusions. The patient reports that there are people living in her crawl space and her attic. She reports hearing them conspired against her, using illicit substances to "get high", hiding when anyone tries to find them, and overall being disruptive. The patient has contacted her landlord and the authorities multiple times who have failed to find any evidence of such people. The patient otherwise denied any active complaints. She reports following with Dr. Guajardo for her CLL and notes that the are monitoring her CBC q3 months. Denied chest pain, shortness of fever, chills, cough, nausea, vomiting, abdominal pain, or diarrhea. Brain CT was unremarkable. Laboratory evaluation was reviewed with WBC count 33.1, glucose 123, BUN 18, chloride 110, urine toxicology negative. Review of Systems Pertinent positives and negatives as discussed in HPI, a complete review of systems was performed and all other systems are negative. Past Medical History Past Medical History: Cancer Additional Past Medical History / Comment(s): CLL History of Any Multi-Drug Resistant Organisms: None Reported Past Surgical History: No Surgical Hx Reported Additional Past Surgical History / Comment(s): eye surgery Past Psychological History: No Psychological Hx Reported Smoking Status: Never smoker Past Alcohol Use History: Rare Past Drug Use History: None Reported Medications and Allergies Home Medications Medication Instructions Recorded Confirmed Type Cyclobenzaprine [Flexeril] 10 mg PO HS PRN 08/05/17 09/11/20 History Cholecalciferol [Vitamin D3 (25 2,000 unit PO DAILY 09/10/20 09/11/20 History Mcg = 1000 Iu)] Flaxseed Oil [Crane-3 Flaxseed Oil] 1,000 mg PO DAILY 09/10/20 09/11/20 History Fluticasone Nasal [place] [Flonase 2 spr EA NOSTRIL DAILY PRN 09/10/20 09/11/20 History Nasal [place]] Magnesium Oxide [Magox 400] 400 mg PO DAILY 09/10/20 09/11/20 History Meclizine HCl 12.5 mg PO HS PRN 09/10/20 09/11/20 History Naproxen Sodium 440 mg PO BID PRN 09/10/20 09/11/20 History Phytonadione [Vitamin K] 5 mg PO DAILY 09/10/20 09/11/20 History Potassium Gluconate 99 mg PO DAILY 09/10/20 09/11/20 History Vitamin E 400 unit PO DAILY 09/10/20 09/11/20 History Zinc 50 mg PO DAILY 09/10/20 09/11/20 History Allergies Allergy/AdvReac Type Severity Reaction Status Date / Time prednisone Allergy Nausea & Verified 09/11/20 04:08 Vomiting Physical Exam Vitals: Vital Signs Temp Pulse Resp BP Pulse Ox 09/11/20 21:47 97.8 F 09/11/20 12:00 97.9 F 09/11/20 05:24 98.0 F 84 18 115/75 97 Intake and Output 09/11/20 09/11/20 09/11/20 06:59 14:59 22:59 Other: Weight 61.689 kg General: non toxic, no distress, appears at stated age, normal weight Derm: no unusual rashes/lesions no unusual ecchymoses, warm, dry Head: atraumatic, normocephalic, symmetric Eyes: EOMI, no lid lag, anicteric sclera, pupils equal round reactive to light ENT: Nose and ears atraumatic, no thrush, no pharyngeal erythema Neck: No thyromegaly, no cervical lymphadenopathy, trachea midline, supple Mouth: no lip lesion, mucus membranes moist Cardiovascular: S1S2 reg, no murmur, positive posterior tibial pulse bilateral, no edema, capillary refill less than 2 seconds Lungs: CTA bilateral, no rhonchi, no rales , no accessory muscle use Abdominal: soft, nontender to palpation, no guarding, no appreciable organomegaly, normal bowel sounds Ext: no gross muscle atrophy, muscle strength 5 out of 5 in all 4 extremities grossly, no contractures, Neuro: CN II-XI grossly intact, light touch intact all 4 extremities, finger to nose within normal limits, Psych: Alert, oriented, appropriate affect Results CBC & Chem 7: 09/10/20 21:54 09/10/20 21:54 Labs: Abnormal Lab Results - Last 24 Hours (Table) 09/10/20 09/10/20 Range/Units 21:54 21:54 Lymphocytes # (Manual) 30.45 H (1.0-4.8) k/uL Cholesterol 259 H (<200) mg/dL LDL Cholesterol, Calc 167 H (0-99) mg/dL HDL Cholesterol 67 H (40-60) mg/dL Assessment and Plan Plan: CLL -Following with Oncology as outpatient Hallucinations and delusions -As per psychiatry Thank you for allowing us to participate in the care of this patient. We will follow peripherally. Do not hesitate to contact us with questions. Someone can be reached from the [facility] hospitalist group at all hours of the day at [phone].
[2020-09-12 06:29] VITALS: RESP 16
[2020-09-12] MEDS: IBUPROFEN 600 MG TAB PO PRN (08:04)
--- NOTE | 2020-09-12 10:30 | P.PN ---
Progress Note - Text Progress Note Date: 09/12/20 Interval history: Patient was seen taking part in group this morning and was directable and agr eeable to speak with communications writer. Patient appears to have a brighter affect today and thanked communications writer for starting her on medications. She states that "the medications making me feel a lot better". She states that she is able to sleep better last night on the unit. She claims that she has a fair appetite and will attempt to take a shower today. States that she has been going to groups and participating as best as she can. Patient was less focused on her delusions of people in her attic at home. At this time patient denies any suicidal or homicidal ideations intent or plan. Denies any Auditory or visual hallucinations. Patient denies any side effects from the medications and has been compliant with meds. Mental status exam: General Appearance: Patient appears to be stated age is alert, directable, and cooperative. Improving hygiene and grooming Behavior: No agitated behavior. Patient is calm and directable., Speech: Patient's speech is fluent and nonpressured. Mood/Affect: Mood is improving mildly, affect is congruent and constricted. Suicidality/Homicidality: Patient denies having any suicidal or homicidal ideation intent or plan. Perceptions: Patient denies any auditory or visual hallucinations. Though content/process: There is no evidence of any delusional thought content and thought process is linear and goal-directed. Less focused on her delusions. Memory and concentration: AOX3, grossly intact for the purposes of this session Judgment and insight: improving mildly Assessment/Plan: Continue with current diagnosis. Patient continues to meet criteria for inpatient psychiatric admission for symptom stabilization and safety.Patient will be maintained on current psychotropic medication regimen. Monitor for medication compliance and for any psychotropic medication side effects. Will continue to monitor ongoing response to treatment. Encouraged participation in milieu.
[2020-09-12] MEDS: PALIPERIDONE 3 MG TAB.ER.24 PO SCH (21:40)
[2020-09-12] MEDS: MELATONIN 3 MG TABLET PO SCH (21:40)
[2020-09-13] MEDS: CYCLOBENZAPRINE 10 MG TAB PO PRN (01:42)
[2020-09-13] MEDS: FLUTICASONE 50MCG/SPRAY NASAL 16GM EA NOSTRIL PRN (04:17)
--- NOTE | 2020-09-13 10:42 | P.PN ---
Progress Note - Text Progress Note Date: 09/13/20 Interval History: Patient was seen attending group and was directable and agreeable to speak with flex o writer operator in the office. Patient continues to endorse paranoia and concern over the safety of her own home. She is not agreeable to her current diagnosis. She states that she has not been evaluated long enough to be diagnosed with any psychosis. He did report that police officers have investigated her home and found no issues and that they directed her to [facility]. Furthermore, the patient does report a history of auditory hallucinations. She states that she would hear a male and female who would be smoking near her. She states that they would not say anything in particular but would moan or making other noises when there are smoking. Patient does report that she is not particularly close with her family but states that she will sign a release of information to speak with her youngest son Be for collateral information. She is adherent with her medications and denies any side effects at this time. She reports that she had problems sleeping last night. Mental Status Exam: General Appearance: Patient appears to be stated age is alert, directable, and cooperative. Behavior: Patient is calmly seated without any agitated behavior. Speech: Patient's speech is fluent and nonpressured. Mood/Affect: Mood is improving mildly, affect is congruent and blunted Suicidality/Homicidality: Patient denies having any suicidal or homicidal ideation intent or plan. Perceptions: Patient denies any visual hallucinations but endorses auditory hallucinations. Though content/process: Paranoid and bizarre delusions are evident. Memory and concentration: AOX3, grossly intact for the purposes of this session Judgment and insight: Poor Assessment Psychosis, unspecified Plan: -Patient continues to meet criteria for inpatient psychiatric admission for symptom stabilization and safety. Patient has signed adult voluntary form and medication consent and was placed in patient's chart. -Medications: Increase Invega to 6 mg by mouth at bedtime for psychosis Increase melatonin to 5 mg by mouth daily at bedtime for insomnia We will obtain collateral information from the patient's son once release of information is signed. -When necessary Ativan and Geodon for agitation/aggression. -SW on board for discharge planning. Encouraged the patient to participate in milieu.
[2020-09-13] MEDS ORDERED: SALINE NASAL GEL 14.1 GM TUBE TOPICAL PRN (17:40)
[2020-09-13] MEDS ORDERED: MECLIZINE 12.5 MG TAB PO PRN (17:40)
[2020-09-13] MEDS: PALIPERIDONE 3 MG TAB.ER.24 PO SCH (20:43)
[2020-09-13] MEDS: MELATONIN 5 MG TABLET PO SCH (20:43)
[2020-09-14 02:54] VITALS: TEMP 97.8
[2020-09-14] MEDS: IBUPROFEN 600 MG TAB PO PRN ×2 (08:37→21:38)
[2020-09-14] MEDS: FLUTICASONE 50MCG/SPRAY NASAL 16GM EA NOSTRIL PRN (08:37)
--- NOTE | 2020-09-14 10:04 | P.PN ---
Progress Note - Text Progress Note Date: 09/14/20 Interval History: Patient was seen wandering the halls and was directable and agreeable to speak with movie writer in the office. Patient stresses that she feels tired today and has a mild headache secondary to poor sleep due to the milieu. She otherwise reports no significant issues regarding depression or anxiety. She reports no suicidal or homicidal ideation, intention, and/or plan. In regards to psychosis, the patient does acknowledge some paranoia about returning home but states that overall she is less concerned. She understands that the police have investigated and found nothing of concern. She reports that she feels safe on the unit. She denies any auditory, olfactory, or visual hallucinations while admitted. She has been adherent with her medications but reports mild palpitations. Her heart rate appears to be elevated at 115 BPM. Collateral information provided by the patient's on [place] after patient signed a MAURICIO. On reports that the patient has not had any significant history of psychosis in the past. He does report a significant family history with his brother (her son) being diagnosed with bipolar disorder. He also believes that the patient has been increasingly stressed in regards her housing situation. He otherwise has noticed that the patient has been somewhat paranoid in the past and may have endorsed some psychotic symptoms but these were attenuated when he first observed them. Mental Status Exam: General Appearance: Patient appears to be stated age is alert, directable, and cooperative. Good hygiene and grooming. Behavior: Patient is calmly seated without any agitated behavior. Speech: Patient's speech is fluent and nonpressured. Mood/Affect: Mood is improving mildly, affect is congruent and blunted Suicidality/Homicidality: Patient denies having any suicidal or homicidal ideation intent or plan. Perceptions: Patient denies any visual hallucinations but endorses auditory hallucinations. Though content/process: Paranoid and bizarre delusions are evident. Memory and concentration: AOX3, grossly intact for the purposes of this session Judgment and insight: Mildly improving Assessment Psychosis, unspecified vs delusional disorder Plan: -Patient continues to meet criteria for inpatient psychiatric admission for symptom stabilization and safety. Patient has signed adult voluntary form and medication consent and was placed in patient's chart. -EKG Ordered -Medications: Continue Invega 6 mg by mouth at bedtime for psychosis Continue melatonin to 5 mg by mouth daily at bedtime for insomnia -When necessary Ativan and Geodon for agitation/aggression. -SW on board for discharge planning. Encouraged the patient to participate in milieu.
[2020-09-14] MEDS: PALIPERIDONE 3 MG TAB.ER.24 PO SCH (21:19)
[2020-09-14] MEDS: MELATONIN 5 MG TABLET PO SCH (21:20)
[2020-09-14] MEDS: CYCLOBENZAPRINE 10 MG TAB PO PRN (22:53)
[2020-09-15 07:13] VITALS: BP 124/58; PULSE 91
[2020-09-15] MEDS: IBUPROFEN 600 MG TAB PO PRN (08:42)
[2020-09-15] MEDS: FLUTICASONE 50MCG/SPRAY NASAL 16GM EA NOSTRIL PRN (09:01)
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
== END 2020-09-15 12:24 | disposition home or self-care (01) | DRG 885 ==
LOC: EC 20:34 → SUPCPDRO 20:34 → 3MHU 09-11 03:23
PROVIDERS: ADMIT Psychiatry & Neurology Psychiatry; ATTEND Psychiatry & Neurology Psychiatry
DX: F23 Brief psychotic disorder (principal); F41.9 Anxiety disorder, unspecified; G47.00 Insomnia, unspecified; R51.9 Headache, unspecified; G89.29 Other chronic pain; M54.2 Cervicalgia; Z72.820 Sleep deprivation; Z79.899 Other long term (current) drug therapy; Z87.891 Personal history of nicotine dependence; Z85.6 Personal history of leukemia; Z86.69 Personal history of other diseases of the nervous system and sense organs; Z98.890 Other specified postprocedural states; Z88.8 Allergy status to other drugs, medicaments and biological substances
CPT/HCPCS: 36415; 70450; 80053; 80061; 80306; 81001; 82140; 83036; 83605; 84443; 85025; 85610; 85730; 93005; 99285